=== PATIENT | male | born 1980 | race Caucasian/White ===

== ENCOUNTER 2016-07-26 18:18 | Emergency (ER) | payer OTHER ==
[2016-07-26] MEDS ORDERED: ONDANSETRON ODT 4 MG TAB ONE (20:24)
[2016-07-26] MEDS ORDERED: MORPHINE 4 MG/ML SYR ONE (20:24)
== END 2016-07-26 21:42 | disposition home or self-care (01) ==
LOC: ER 18:18
DX: S02.2XXA Fracture of nasal bones, initial encounter for closed fracture (principal); S00.31XA Abrasion of nose, initial encounter; W50.0XXA Accidental hit or strike by another person, initial encounter; Y93.67 Activity, basketball; Y92.310 Basketball court as the place of occurrence of the external cause
CPT/HCPCS: 70486; 96372; 99284; J2270